=== PATIENT | female | born 1960 | race Caucasian/White ===

== ENCOUNTER 2021-03-27 08:06 | Outpatient (CLI) | payer BC | END 2021-03-27 08:07 | disposition home or self-care (01) | LOC: BICMAMMO 08:06 | PROVIDERS: ATTEND Family Medicine | DX: Z12.31 Encounter for screening mammogram for malignant neoplasm of breast (principal); Z13.820 Encounter for screening for osteoporosis; M85.851 Other specified disorders of bone density and structure, right thigh; M85.852 Other specified disorders of bone density and structure, left thigh; Z78.0 Asymptomatic menopausal state; Z98.890 Other specified postprocedural states; Z86.018 Personal history of other benign neoplasm | CPT/HCPCS: 77063; 77067; 77080 ==

== ENCOUNTER 2022-12-15 12:34 | Outpatient (CLI) | payer BC | END 2022-12-15 12:35 | disposition home or self-care (01) | LOC: SCSMRI 12:34 | PROVIDERS: ATTEND Family Medicine | DX: M50.122 Cervical disc disorder at C5-C6 level with radiculopathy (principal) | CPT/HCPCS: 72141 ==

== ENCOUNTER 2024-08-31 09:06 | Outpatient (CLI) | payer BC | END 2024-08-31 09:07 | disposition home or self-care (01) | LOC: SCSRAD 09:06 | PROVIDERS: ATTEND Family Medicine | DX: R07.9 Chest pain, unspecified (principal); I51.7 Cardiomegaly; J98.4 Other disorders of lung | CPT/HCPCS: 71046 ==